=== PATIENT | male | born 1980 | race Caucasian/White ===

== ENCOUNTER 2017-01-12 09:25 | Emergency (ER) | payer BC ==
[~2017-01-12] VITALS: Wt 80.0 kg
[~2017-01-12 09:25] MED LIST: ACET1TAB40 PO; CIPR500T4 PO
[2017-01-12] MEDS ORDERED: CETI10CA PO (10:39)
[2017-01-12] MEDS ORDERED: BACITUD TOP (10:39)
[2017-01-12] MEDS ORDERED: CEPH-443 PO (10:40)
[2017-01-12] MEDS ORDERED: BACTDS PO (10:40)
--- NOTE | 2017-01-12 10:46 | ERD ---
ER Documentation Chief Complaint Date/Time DATE: 01/12/17 TIME: 10:42 Chief Complaint burn on left forearm x 5 days HPI This is a 36-year-old male who presents to the ED with the burn on his left forearm. He states that he uses the grill at work and oil spilled on his left forearm 5 days ago. He states that it was best blisterlike and there was drainage. He states that it is itchy and slightly painful. He states that he has mild swelling and redness on his arm. Denies fever or chills. Denies abdominal pain, nausea, vomiting or diarrhea. No other complaints. Patient is up-to-date with his vaccinations and has received a tetanus within the last 10 years. ROS All systems reviewed and are negative except as per history of present illness. Medications Home Meds Active Scripts Sulfamethoxazole-Trimethoprim* (Bactrim* DS) 800-160 Mg Tab, 1 TAB PO BID for 5 Days, TAB Prov:AYDE SUH-C 01/12/17 Cephalexin* (Keflex*) 500 Mg Capsule, 500 MG PO QID for 5 Days, CAP Prov:AYDE SUHC 01/12/17 Bacitracin* (Bacitracin Oint (UD)*) 1 Applic Oint, 1 APPLIC TOP ONCE for 7 Days , PKT APPLY TO Prov:AYDE SUH-C 01/12/17 Cetirizine Hcl* (Zyrtec*) 10 Mg Capsule, 10 MG PO DAILY, #30 TAB.CHEW Prov:AYDE SUH-C 01/12/17 Acetaminophen-Codeine* (Acetaminophen-Cod #3*) 300-30 Mg Tab, 1 TAB PO Q4H Y for PAIN, #30 TAB Prov:CECILY BEGUM MD 07/04/16 Ciprofloxacin Hcl* (Ciprofloxacin Hcl*) 500 Mg Tablet, 500 MG PO BID for 10 Days , TAB Prov:CECILY BEGUM MD 07/04/16 Allergies Allergies: Coded Allergies: No Known Allergy (Unverified , 07/04/16) PMhx/Soc Medical and Surgical Hx: pt denies Medical Hx, pt denies Surgical Hx History of Surgery: No Hx Neurological Disorder: No Hx Respiratory Disorders: No Hx Cardiac Disorders: No Hx Psychiatric Problems: No Hx Miscellaneous Medical Probl: No Hx Alcohol Use: Yes (socially) Hx Substance Use: No Hx Tobacco Use: No Smoking Status: Never smoker Physical Exam Vitals Vital Signs Date Time Temp Pulse Resp B/P Pulse Ox O2 Delivery O2 Flow Rate FiO2 01/12/17 09:36 98.3 92 21 130/86 97 Physical Exam GENERAL: Well-developed, well-nourished male. Appears in no acute distress. HEAD: Normocephalic, atraumatic. LUNG: Clear to auscultation bilaterally. No rhonchi, wheezing, rales or coarse breath sounds. HEART: Regular rate and rhythm. No murmurs, rubs or gallops. NEUROLOGIC: Alert and oriented. Moving all four extremities. 5/5 strength in all extremities. Normal speech. Steady gait. SKIN: Normal color. Warm and dry. No rashes or lesions. Capillary refill < 2 seconds. Patient has a healing burn on his left forearm. There is some surrounding erythema and warmth. No drainage. No open wounds or lacerations. Procedures/MDM ER COURSE: I kept the patient and/or family informed of laboratory and diagnostic imaging results throughout the emergency room course. MEDICAL DECISION MAKING: This is a 36-year-old male who presents with burn to his left forearm. Vital signs were reviewed. Patient is afebrile. Patient is not hypoxic. Patient has a second-degree burn to his left forearm. Low suspicion for necrotizing fasciitis, SJS, toxic epidermal necrolysis, Kawasaki, erythema multiforme, gangrene, scarlet fever, meningococcemia, sepsis, anaphylaxis, sepsis, deep space infection, or foreign body. Tetanus will be given in the ED as patient is up-to-date with his tetanus. There is likely some cellulitis and I will be treating it for this out patiently. Patient is afebrile. DISCHARGE: At this time, patient is stable for discharge and outpatient management with no new complaints during the ER course. Patient was sent home with bacitracin, Keflex, Bactrim and Zyrtec a note for work is also given to patient.. Patient will be discharged home with instructions to recheck for new or worsening symptoms such as fever, nausea, weakness, LOC and to follow up with primary care in the next 1-2 days. Patient was advised to return to the ER for any new or worsening symptoms. Plan was discussed and patient and/or family understands and agrees. Home instructions were given. Departure Diagnosis: Primary Impression: Burn injury Condition: Stable Patient Instructions: Burn, Second Degree Referrals: [facility] Additional Instructions: Call your primary care doctor TOMORROW for an appointment during the next 1-2 days.See the doctor sooner or return here if your condition worsens before your appointment time. AYDE SUH PA-C Jan 12, 2017 10:46
== END 2017-01-12 10:45 | disposition home or self-care (01) ==
LOC: FTE 09:25
DX: T22.212A Burn of second degree of left forearm, initial encounter (principal); X10.2XXA Contact with fats and cooking oils, initial encounter; Y92.89 Other specified places as the place of occurrence of the external cause
CPT/HCPCS: 99284

== ENCOUNTER 2019-06-25 19:47 | Emergency (ER) | payer BC ==
[~2019-06-25] VITALS: Ht 175.3 cm; Wt 77.1 kg
[~2019-06-25 19:47] MED LIST changes: +ACET-141 PO; +AMOX1TAB10 PO; +BACITUD TOP; +BACTDS PO; +CEPH-443 PO; +CETI10CA PO
[2019-06-25 19:58] VITALS: BP 129/69; PULSE 82; RESP 18; Ht 175.3 cm; Wt 77.1 kg
--- NOTE | 2019-06-25 21:30 | ERD ---
ER Documentation Chief Complaint Chief Complaint Bilateral earache x2 days HPI 38-year-old male with no significant past medical history presents for bilateral ear pain x2 days. Pain is noted to be about 5 out of 10. Says that the pain is a dull sensation. Nonradiating. Denies any trauma. Denies fever. Denies shortness of breath or chest pain. Denies abdominal pain, nausea, vomiting. Denies hearing loss. No prior similar symptoms. No other modifying factors noted, no treatment tried at home. ROS All systems reviewed and are negative except as per history of present illness. Medications Home Meds Active Scripts Acetaminophen* (Acetaminophen*) 500 MG Extra Strength Tablet, 500 MG PO Q4H PRN for PAIN AND OR ELEVATED TEMP, #30 TAB Prov:CARTER LOVELL DO 06/25/19 Amoxicillin/Potassium Clav (Amox-Clav 875-125 mg Tablet) 875-125 mg Tab, 1 TAB PO BID for ear infection for 7 Days, #14 TAB Prov:CARTER LOVELL DO 06/25/19 Sulfamethoxazole-Trimethoprim* (Bactrim* DS) 800-160 Mg Tab, 1 TAB PO BID for 5 Days, TAB Prov:AYDE SUH PA-C 01/12/17 Cephalexin* (Keflex*) 500 Mg Capsule, 500 MG PO QID for 5 Days, CAP Prov:AYDE SUH PA-C 01/12/17 Bacitracin* (Bacitracin Oint (UD)*) 1 Applic Oint, 1 APPLIC TOP ONCE for 7 Days, PKT APPLY TO Prov:AYDE SUH PA-C 01/12/17 Cetirizine Hcl* (Zyrtec*) 10 Mg Capsule, 10 MG PO DAILY, #30 TAB.CHEW Prov:BRENDAN SUHAZ PA-C 01/12/17 Acetaminophen-Codeine* (Acetaminophen-Cod #3*) 300-30 Mg Tab, 1 TAB PO Q4H PRN for PAIN, #30 TAB Prov:CECILY BEGUM MD 07/04/16 Ciprofloxacin Hcl* (Ciprofloxacin Hcl*) 500 Mg Tablet, 500 MG PO BID for 10 Days, TAB Prov:CECILY BEGUM MD 07/04/16 Allergies Allergies: Coded Allergies: No Known Allergy (Unverified , 07/04/16) PMhx/Soc Medical and Surgical Hx: pt denies Medical Hx, pt denies Surgical Hx History of Surgery: No Hx Neurological Disorder: No Hx Respiratory Disorders: No Hx Cardiac Disorders: No Hx Psychiatric Problems: No Hx Miscellaneous Medical Probl: No Hx Alcohol Use: Yes (socially) Hx Substance Use: No Hx Tobacco Use: No Smoking Status: Never smoker FmHx Family History: No coronary disease Physical Exam Vitals Vital Signs Date Temp Pulse Resp B/P (MAP) Pulse Ox O2 O2 Flow FiO2 Time Delivery Rate 06/25/19 98.5 82 18 129/69 97 19:58 (89) Physical Exam Const: No acute distress Head: Atraumatic Eyes: Normal Conjunctiva ENT: bilateral tympanic membrane with erythema and bulging noted, nose and Mouth examination normal, no tonsillar swelling or exudate noted Neck: Full range of motion. No meningismus. Resp: Clear to auscultation bilaterally, no wheezing, rales, rhonchi Cardio: Regular rate and rhythm, no murmurs Skin: No petechiae or rashes Ext: No cyanosis, or edema Neur: Awake and alert Psych: Normal Mood and Affect Procedures/MDM Medical Decision Making: Differential diagnosis includes but not limited to otitis externa, otitis media, eustachian tube dysfunction, mastoiditis, TMJ dysfunction, foreign body Patient appeared well on exam. Physical examination consistent with a bilateral otitis media. Patient given prescription for supportive medication(s) as well as antibiotic for the ear infection. Patient advised to follow up with PCP in 1-2 days. Patient advised to return to ED for new or worsening symptoms. Patient stable on discharge from the ED. Disclaimer: Inadvertent spelling and grammatical errors are likely due to EHR/dictation software use and do not reflect on the overall quality of patient care. Also, please note that the electronic time recorded on this note does not necessarily reflect the actual time of the patient encounter. Departure Diagnosis: Primary Impression: Otitis media Otitis media type: unspecified Chronicity: acute Qualified Codes: H66.90 - Otitis media, unspecified, unspecified ear Condition: Fair Patient Instructions: Otitis Media, Abx Tx (Adult) Referrals: [facility] YOU HAVE RECEIVED A MEDICAL SCREENING EXAM AND THE RESULTS INDICATE THAT YOU DO NOT HAVE A CONDITION THAT REQUIRES URGENT TREATMENT IN THE EMERGENCY DEPARTMENT. FURTHER EVALUATION AND TREATMENT OF YOUR CONDITION CAN WAIT UNTIL YOU ARE SEEN IN YOUR DOCTORS OFFICE WITHIN THE NEXT 1-2 DAYS. IT IS YOUR RESPONSIBILITY TO MAKE AN APPOINTMENT FOR FOLOW-UP CARE. IF YOU HAVE A PRIMARY DOCTOR --you should call your primary doctor and schedule an appointment IF YOU DO NOT HAVE A PRIMARY DOCTOR YOU CAN CALL OUR PHYSICIAN REFERRAL HOTLINE AT IF YOU CAN NOT AFFORD TO SEE A PHYSICIAN YOU CAN CHOSE FROM THE FOLLOWING [facility] [address] [facility] [address] [facility] [facility] [address] [facility] [address] [facility] [address] [facility]. [facility]. [address] Additional Instructions: Call your primary care doctor TOMORROW for an appointment during the next 1-2 days.See the doctor sooner or return here if your condition worsens before your appointment time. CARTER LOVELL DO Jun 25, 2019 21:30
== END 2019-06-25 21:35 | disposition home or self-care (01) ==
LOC: FTE 19:47
DX: H66.93 Otitis media, unspecified, bilateral (principal)
CPT/HCPCS: 99283